=== PATIENT | female | born 1975 | race African-American/Black ===

== ENCOUNTER 2018-02-21 15:51 | Emergency (ER) | payer OTHER ==
[~2018-02-21] VITALS: Ht 170.2 cm; Wt 99.8 kg
[2018-02-21] MEDS ORDERED: GLIPIZIDE10 MG PO (16:10)
[2018-02-21] MEDS ORDERED: PROPRANOLOL HCL80 M2 PO (16:10)
[2018-02-21] MEDS ORDERED: LIPITOR80 MG ORAL (16:10)
[2018-02-21 16:16] VITALS: BP 129/81
[2018-02-21] MEDS ORDERED: Isovue-370 150ml vial INJ PRN (17:00)
[2018-02-21 17:17] LABS: BASOPHILS % (AUTO) 0.9 % (0.0-2.0); EOSINOPHILS % (AUTO) 1.5 % (0.0-3.0); HEMATOCRIT 41.7 % (37.0-47.0); HEMOGLOBIN 14.3 G/DL (12.0-16.0); LYMPHOCYTES % (AUTO) 36.1 % (20.0-45.0); MEAN CORPUSCULAR VOLUME 90 FL (80-99); MONOCYTES % (AUTO) 9.8 % (1.0-10.0); NEUTROPHILS % (AUTO) 51.8 % (45.0-75.0); PLATELET COUNT 297 K/UL (150-450); RED BLOOD COUNT 4.63 M/UL (4.20-5.40); WHITE BLOOD COUNT 6.6 K/UL (4.8-10.8)
[2018-02-21 17:24] LABS: ANION GAP 4 mmol/L (5-15); BLOOD UREA NITROGEN 19 mg/dL (7-18); CALCIUM 9.2 MG/DL (8.5-10.1); CARBON DIOXIDE 30 MMOL/L (21-32); CHLORIDE 105 MMOL/L (98-107); CREATININE 1.2 MG/DL (0.55-1.30); POTASSIUM 3.5 MMOL/L (3.5-5.1); SODIUM 139 MMOL/L (136-145)
[2018-02-21 17:50] LABS: ALANINE AMINOTRANSFERASE 23 U/L (12-78); ALBUMIN 3.7 G/DL (3.4-5.0); ALBUMIN/GLOBULIN RATIO 0.9 (1.0-2.7); ALKALINE PHOSPHATASE 70 U/L (46-116); ASPARTATE AMINO TRANSFERASE 18 U/L (15-37); BILIRUBIN,TOTAL 0.4 MG/DL (0.2-1.0); CKMB 0.8 NG/ML (0.0-3.6); CREATINE KINASE 136 U/L (26-308)
[2018-02-21 18:01] VITALS: BP 130/82
[2018-02-21] MEDS ORDERED: IBUPROFEN600 MG ORAL (18:30)
[2018-02-21 18:45] VITALS: BP 130/82
--- NOTE | 2018-02-21 19:42 | Emergency Room Report ---
History of Present Illness General Chief Complaint: Chest Pain Source: Patient Present Illness HPI Patient presents with complaints of chest pain midsternal patient reports that 2 days ago she was walking when she felt the pain Describes as a shooting type pain There was a pleuritic component Denies any vomiting or diarrhea Denies any abdominal pain denies any dysuria frequency Denies any smoking She feels of the pain has significantly improved Allergies: Coded Allergies: No Known Allergies (Unverified , 02/21/18) Patient History Past Medical History: see triage record Pertinent Family History: none Reviewed Nursing Documentation: PMH: Agreed; PSxH: Agreed Nursing Documentation-PM Past Medical History: No History, Except For Hx Hypertension: Yes Hx Diabetes: Yes Review of Systems All Other Systems: negative except mentioned in HPI Physical Exam Vital Signs Date Time Temp Pulse Resp B/P (MAP) Pulse Ox O2 Delivery O2 Flow Rate FiO2 02/21/18 16:06 80 24 130/82 96 Room Air 02/21/18 16:16 98.5 98.5 02/21/18 18:01 2.0 Sp02 EP Interpretation: reviewed, normal General Appearance: well appearing, no apparent distress Head: normocephalic, atraumatic Eyes: bilateral eye PERRL, bilateral eye EOMI ENT: hearing grossly normal, normal pharynx, TMs + canals normal, uvula midline Neck: full range of motion, supple, no meningismus, no bony tend Respiratory: lungs clear, normal breath sounds, no rhonchi, no respiratory distress, no retraction, no accessory muscle use Cardiovascular #1: normal peripheral pulses, regular rate, rhythm, no edema, no gallop, no JVD, no murmur Gastrointestinal: normal bowel sounds, non tender, soft, no mass, no organomegaly, non-distended, no guarding, no hernia, no pulsatile mass, no rebound Genitourinary: no CVA tenderness Musculoskeletal: normal inspection Neurologic: oriented x3, responsive, manager furniture III-XII nml as tested, motor strength/ tone normal, sensory intact Psychiatric: mood/affect normal Skin: normal color, no rash, warm/dry, palpation normal Lymphatic: normal inspection, no adenopathy Medical Decision Making Diagnostic Impression: Primary Impression: Chest pain ER Course Patient is a fairly complex patient with multiple differential to consideration including but not limited to cardiac cardiopulmonary and vascular emergencies Patient's EKG and blood work are appropriate Given the patient's presentation and complaint CT imaging was also obtained Negative for any obvious central pulmonary embolism Patient feels at baseline levels at this time And is stable for close outpatient follow-up Labs Test 02/21/18 16:40 White Blood Count 6.6 K/UL (4.8-10.8) Red Blood Count 4.63 M/UL (4.20-5.40) Hemoglobin 14.3 G/DL (12.0-16.0) Hematocrit 41.7 % (37.0-47.0) Mean Corpuscular Volume 90 FL (80-99) Mean Corpuscular Hemoglobin 30.9 PG (27.0-31.0) Mean Corpuscular Hemoglobin Concent 34.3 G/DL (32.0-36.0) Red Cell Distribution Width 12.0 % (11.6-14.8) Platelet Count 297 K/UL (150-450) Mean Platelet Volume 6.6 FL (6.5-10.1) Neutrophils (%) (Auto) 51.8 % (45.0-75.0) Lymphocytes (%) (Auto) 36.1 % (20.0-45.0) Monocytes (%) (Auto) 9.8 % (1.0-10.0) Eosinophils (%) (Auto) 1.5 % (0.0-3.0) Basophils (%) (Auto) 0.9 % (0.0-2.0) Urine HCG, Qualitative Negative (NEGATIVE) Sodium Level 139 MMOL/L (136-145) Potassium Level 3.5 MMOL/L (3.5-5.1) Chloride Level 105 MMOL/L (98-107) Carbon Dioxide Level 30 MMOL/L (21-32) Anion Gap 4 mmol/L (5-15) Blood Urea Nitrogen 19 mg/dL (7-18) Creatinine 1.2 MG/DL (0.55-1.30) Estimat Glomerular Filtration Rate 59.8 mL/min (>60) Glucose Level 114 MG/DL (74-106) Calcium Level 9.2 MG/DL (8.5-10.1) Total Bilirubin 0.4 MG/DL (0.2-1.0) Aspartate Amino Transf (AST/SGOT) 18 U/L (15-37) Alanine Aminotransferase (ALT/SGPT) 23 U/L (12-78) Alkaline Phosphatase 70 U/L (46-116) Total Creatine Kinase 136 U/L (26-308) Creatine Kinase MB 0.8 NG/ML (0.0-3.6) Creatine Kinase MB Relative Index 0.5 Troponin I 0.000 ng/mL (0.000-0.056) Pro-B-Type Natriuretic Peptide 16 pg/mL (0-125) Total Protein 8.0 G/DL (6.4-8.2) Albumin 3.7 G/DL (3.4-5.0) Globulin 4.3 g/dL Albumin/Globulin Ratio 0.9 (1.0-2.7) Lipase 129 U/L (73-393) Urine Opiates Screen Negative (NEGATIVE) Urine Barbiturates Screen Negative (NEGATIVE) Phencyclidine (PCP) Screen Negative (NEGATIVE) Urine Amphetamines Screen Negative (NEGATIVE) Urine Benzodiazepines Screen Negative (NEGATIVE) Urine Cocaine Screen Negative (NEGATIVE) Urine Marijuana (THC) Screen Negative (NEGATIVE) EKG Diagnostic Results Rate: normal Rhythm: NSR ST Segments: no acute changes Rhythm Strip Diag. Results EP Interpretation: yes Rate: 77 Rhythm: NSR, no PVC's, no ectopy Chest X-Ray Diagnostic Results Chest X-Ray Diagnostic Results : Chest X-Ray Ordered: Yes # of Views/Limited/Complete: 1 View Indication: Chest Pain EP Interpretation: Yes Interpretation: no consolidation, no effusion, no pneumothorax Impression: No acute disease Electronically Signed by: Adama Duran DO CT/MRI/US Diagnostic Results CT/MRI/US Diagnostic Results : Impression CT chest no acute disease Last Vital Signs Date Time Temp Pulse Resp B/P (MAP) Pulse Ox O2 Delivery O2 Flow Rate FiO2 02/21/18 18:45 98.5 78 18 130/82 98 Nasal Cannula 98.5 02/21/18 18:01 2.0 Status: improved Disposition: HOME, SELF-CARE Condition: Improved Scripts Ibuprofen* (MOTRIN*) 600 Mg Tablet 600 MG ORAL Q8H PRN for For Pain, #20 TAB 0 Refills Prov: Adama Duran DO 02/21/18 Referrals: HILL SAMS,REFERRING (PCP) Patient Instructions: Nonspecific Chest Pain Additional Instructions: Patient is provided with the discharge instructions notified to follow up with primary doctor in the next 2-3 days otherwise return to the er with any worsening symptoms. Please note that this report is being documented using DRAGON technology. This can lead to erroneous entry secondary to incorrect interpretation by the dictating instrument. Adama Duran DO Feb 21, 2018 19:42
--- NOTE | 2018-02-22 08:28 | Diagnostic Imaging Report ---
ndication: Left-sided chest pain for 2 days Technique: IV administration nonionic contrast. Spiral acquisitions obtained from the lung bases to the lung apices. Multiplanar and 3-D reconstructions were generated. Total dose length product 1335.5 mGycm. CTDIvol(s) 39.34 mGy. Dose reduction achieved using automated exposure control Comparison: none Findings: Exam is limited by motion artifact. This particularly limits evaluation of the lung bases. No definite filling defects or other findings to suggest acute pulmonary embolus demonstrated. 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 No evidence of thoracic aortic aneurysm or dissection. Normal caliber pulmonary arteries. No evidence of right ventricular dilatation. The lungs demonstrate apparent diffuse groundglass opacity, more likely an artifact of motion than real. No definite infiltrates, effusions, masses, or nodules. The heart is upper limits of normal in size. No epicardial effusion. Unremarkable esophagus. No mediastinal or hilar mass or adenopathy demonstrated. Included portions of the thyroid are unremarkable. No axillary or chest wall mass or adenopathy. The bones are unremarkable. The included upper abdominal anatomy is unremarkable. Impression: Limited exam; respiratory motion artifact limits exclusion of distal pulmonary emboli. No gross large vessel pulmonary MRI demonstrated. No definite acute process; apparent pulmonary parenchymal groundglass opacity is probably artifactual due to respiratory motion This agrees with the preliminary interpretation provided overnight by [facility] teleradiology service. The CT scanner at [facility] is accredited by the [employer] and the scans are performed using protocols designed to limit radiation exposure to as low as reasonably achievable to attain images of sufficient resolution adequate for diagnostic evaluation.
--- NOTE | 2018-02-22 11:25 | Diagnostic Imaging Report ---
Indication: Chest pain Technique: One view of the chest Comparison: none Findings: Lungs and pleural spaces are clear. Heart size is normal Impression: No acute process
== END 2018-02-21 18:53 | disposition home or self-care (01) ==
LOC: EMR 16:32
DX: R07.9 Chest pain, unspecified (principal); I10 Essential (primary) hypertension; E11.9 Type 2 diabetes mellitus without complications
CPT/HCPCS: 36415; 71045; 71275; 80053; 80307; 81025; 82550; 82553; 83690; 83880; 84484; 85025; 99284; Q9967

== ENCOUNTER 2019-04-03 22:52 | Emergency (ER) | payer OTHER ==
[~2019-04-03] VITALS: Ht 170.2 cm; Wt 90.7 kg
[~2019-04-03 22:52] MED LIST: ADVOCATE BLOOD1 EACH MC; GLIPIZIDE10 MG PO; GLIPIZIDE5 MG ORAL; HYDROCHLOROTH12.5 M2 ORAL; IBUPROFEN600 MG ORAL; LIPITOR80 MG ORAL; NORVASC5 MG ORAL; PROPRANOLOL HCL10 MG ORAL; PROPRANOLOL HCL80 M2 PO
--- NOTE | 2019-04-03 23:12 | NUR ---
ED Nurse Note: Pt ambulated to ED from home c/o intermittent 9/10 crushing pressure in her chest since 1400, denies pain radiates, denies sob. A&Ox4. Denies N/V
[2019-04-03 23:17] VITALS: BP 151/99
--- NOTE | 2019-04-03 23:19 | Emergency Room Report ---
History of Present Illness General Chief Complaint: Chest Pain Source: Patient Present Illness HPI 44, presents with dull chest pain that was constant since 4 PM, 4-year-old female history of hypertension, hyperlipidemia, diabetes, obesity not aggravated with exertion, no alleviating factors, no nausea no vomiting, no shortness of breath, she feels a dull ache mild in intensity, no radiation of her pain, patient presents for evaluation Allergies: Coded Allergies: No Known Allergies (Unverified , 02/21/18) Patient History Past Medical History: see triage record Last Menstrual Period: hysterectomy Reviewed Nursing Documentation: PMH: Agreed; PSxH: Agreed Nursing Documentation-PMH Past Medical History: No History, Except For Hx Hypertension: Yes Hx Diabetes: Yes Review of Systems All Other Systems: negative except mentioned in HPI Physical Exam Vital Signs Date Time Temp Pulse Resp B/P (MAP) Pulse Ox O2 Delivery O2 Flow Rate FiO2 04/03/19 22:54 98.1 76 18 151/99 (116) 97 Room Air Sp02 EP Interpretation: reviewed, normal General Appearance: well appearing, no apparent distress, alert Head: normocephalic, atraumatic Eyes: bilateral eye PERRL, bilateral eye EOMI ENT: uvula midline, moist mucus membranes Neck: supple, thyroid normal, supple/symm/no masses Respiratory: lungs clear, no respiratory distress, no retraction, no accessory muscle use Cardiovascular #1: normal peripheral pulses, regular rate, rhythm, no edema, no gallop, no murmur Gastrointestinal: non tender, soft, no guarding, no rebound Musculoskeletal: normal inspection Neurologic: alert, oriented x3 Psychiatric: mood/affect normal Skin: no rash, warm/dry Medical Decision Making Diagnostic Impression: Primary Impression: Chest pain ER Course 44-year-old female presents with atypical chest pain since 4 PM. Patient with negative stress test 1 year ago, patient with a heart score of 3 based on story, risk factors, and age, first troponin was negative, EKG is negative for focal abnormalities, joint decision making was made with patient, patient feels comfortable going home she will return if she worsens. Pain improved with GI cocktail administration, possible component of GERD Provide patient with a prescription for baby aspirin to be taken every day Laboratory Tests Test 04/03/19 23:20 White Blood Count 7.0 K/UL (4.8-10.8) Red Blood Count 4.61 M/UL (4.20-5.40) Hemoglobin 14.0 G/DL (12.0-16.0) Hematocrit 40.2 % (37.0-47.0) Mean Corpuscular Volume 87 FL (80-99) Mean Corpuscular Hemoglobin 30.3 PG (27.0-31.0) Mean Corpuscular Hemoglobin Concent 34.7 G/DL (32.0-36.0) Red Cell Distribution Width 11.2 % (11.6-14.8) L Platelet Count 288 K/UL (150-450) Mean Platelet Volume 6.3 FL (6.5-10.1) L Neutrophils (%) (Auto) 51.7 % (45.0-75.0) Lymphocytes (%) (Auto) 39.8 % (20.0-45.0) Monocytes (%) (Auto) 4.7 % (1.0-10.0) Eosinophils (%) (Auto) 2.4 % (0.0-3.0) Basophils (%) (Auto) 1.4 % (0.0-2.0) Prothrombin Time 10.2 SEC (9.30-11.50) Prothrombin Time INR 1.0 (0.9-1.1) PTT 28 SEC (23-33) Urine Color Pale yellow Urine Appearance Slightly cloudy Urine pH 6.5 (4.5-8.0) Urine Specific [place] 1.005 (1.005-1.035) Urine Protein Negative (NEGATIVE) Urine Glucose (UA) 2+ (NEGATIVE) H Urine Ketones Negative (NEGATIVE) Urine Blood Negative (NEGATIVE) Urine Nitrite Negative (NEGATIVE) Urine Bilirubin Negative (NEGATIVE) Urine Urobilinogen Normal MG/DL (0.0-1.0) Urine Leukocyte Esterase 1+ (NEGATIVE) H Urine RBC 0-2 /HPF (0 - 2) Urine WBC 0-2 /HPF (0 - 2) Urine Squamous Epithelial Cells Many /LPF (NONE/OCC) H Urine Bacteria Moderate /HPF (NONE) H Urine HCG, Qualitative Negative (NEGATIVE) Sodium Level 139 MMOL/L (136-145) Potassium Level 3.5 MMOL/L (3.5-5.1) Chloride Level 101 MMOL/L (98-107) Carbon Dioxide Level 33 MMOL/L (21-32) H Anion Gap 5 mmol/L (5-15) Blood Urea Nitrogen 14 mg/dL (7-18) Creatinine 1.0 MG/DL (0.55-1.30) Estimate Glomerular Filtration Rate > 60 mL/min (>60) Glucose Level 202 MG/DL (74-106) H Calcium Level 9.4 MG/DL (8.5-10.1) Total Bilirubin 0.4 MG/DL (0.2-1.0) Aspartate Amino Transferase (AST) 17 U/L (15-37) Alanine Aminotransferase (ALT) 16 U/L (12-78) Alkaline Phosphatase 71 U/L (46-116) Total Creatine Kinase 111 U/L (26-308) Creatine Kinase MB 0.7 NG/ML (0.0-3.6) Creatine Kinase MB Relative Index 0.6 Troponin I 0.000 ng/mL (0.000-0.056) Pro-B-Type Natriuretic Peptide 63 pg/mL (0-125) Total Protein 7.9 G/DL (6.4-8.2) Albumin 3.9 G/DL (3.4-5.0) Globulin 4.0 g/dL Albumin/Globulin Ratio 1.0 (1.0-2.7) Lipase 150 U/L (73-393) EKG Diagnostic Results EKG Time: 23:02 EP Interpretation: NSR, rate 76, QTc 445, no acute ST elevations, normal axis Rate: normal Rhythm: NSR ST Segments: no acute changes ASA given to the pt in ED: No Rhythm Strip Diag. Results Rhythm Strip Time: 23:18 EP Interpretation: yes Rate: 73 Rhythm: NSR, no PVC's, no ectopy Chest X-Ray Diagnostic Results Chest X-Ray Diagnostic Results : Chest X-Ray Ordered: Yes # of Views/Limited/Complete: 1 View Indication: Chest Pain EP Interpretation: Yes Interpretation: no acute cardiopulmonary disease Impression: No acute disease Electronically Signed by: Francisco Jon MD Last Vital Signs Date Time Temp Pulse Resp B/P (MAP) Pulse Ox O2 Delivery O2 Flow Rate FiO2 04/03/19 22:54 98.1 76 18 151/99 (116) 97 Room Air Disposition: HOME, SELF-CARE Condition: Stable Scripts Aspirin* (ASPIR 81*) 81 Mg Tablet. 81 MG ORAL DAILY, #30 TAB Prov: Francisco Jno MD 04/04/19 Referrals: H[facility] SAMS,REFERRING (PCP) [facility] Patient Instructions: Nonspecific Chest Pain Additional Instructions: The patient was provided with discharge instructions, notified to follow-up with a primary care doctor and or specialist in the next 24-48 hours, and to return to the ED if they have worsening of their symptoms. Please note that this report is being documented using [employer] technology. This can lead to erroneous entry secondary to incorrect interpretation by the dictating instrument. Please obtain a stress test and follow-up with a order booker in 24 to 48 hours , please return to the emergency room if you have worsening of your pain. Francisco Jon MD Apr 03, 2019 23:19
[2019-04-03 23:44] LABS: BASOPHILS % (AUTO) 1.4 % (0.0-2.0); EOSINOPHILS % (AUTO) 2.4 % (0.0-3.0); HEMATOCRIT 40.2 % (37.0-47.0); LYMPHOCYTES % (AUTO) 39.8 % (20.0-45.0); MEAN CORPUSCULAR VOLUME 87 FL (80-99); MONOCYTES % (AUTO) 4.7 % (1.0-10.0); NEUTROPHILS % (AUTO) 51.7 % (45.0-75.0); PLATELET COUNT 288 K/UL (150-450); RED BLOOD COUNT 4.61 M/UL (4.20-5.40); RED CELL DISTRIBUTION WIDTH 11.2 % (11.6-14.8)
[2019-04-03 23:45] LABS: APPEARANCE,URINE SLIGHTLY CLOUDY; BILIRUBIN, URINE NEGATIVE (NEGATIVE); COLOR,URINE PALE YELLOW; GLUCOSE, URINE (UA) 2+ (NEGATIVE); KETONES,URINE NEGATIVE (NEGATIVE); LEUKOCYTE ESTERASE ,URINE 1+ (NEGATIVE); NITRITE,URINE NEGATIVE (NEGATIVE); PH,URINE 6.5 (4.5-8.0); PROTEIN,URINE NEGATIVE (NEGATIVE); UROBILINOGEN,URINE NORMAL MG/DL (0.0-1.0)
[2019-04-04 00:01] LABS: ANION GAP 5 mmol/L (5-15); BLOOD UREA NITROGEN 14 mg/dL (7-18); CALCIUM 9.4 MG/DL (8.5-10.1); CARBON DIOXIDE 33 MMOL/L (21-32); CHLORIDE 101 MMOL/L (98-107); POTASSIUM 3.5 MMOL/L (3.5-5.1); SODIUM 139 MMOL/L (136-145)
[2019-04-04 00:09] LABS: ALANINE AMINOTRANSFERASE 16 U/L (12-78); ALBUMIN 3.9 G/DL (3.4-5.0); ALKALINE PHOSPHATASE 71 U/L (46-116); ASPARTATE AMINO TRANSFERASE 17 U/L (15-37); BILIRUBIN,TOTAL 0.4 MG/DL (0.2-1.0); CKMB 0.7 NG/ML (0.0-3.6); CREATINE KINASE 111 U/L (26-308)
[2019-04-04] MEDS ORDERED: Lidocaine 2% Visc 15ml soln ORAL ONE (00:30)
[2019-04-04] MEDS ORDERED: Mylanta II UD 30ml ORAL ONE (00:30)
[2019-04-04] MEDS ORDERED: ASPIR 8181 MG ORAL (00:44)
[2019-04-04 00:55] VITALS: BP 151/99
--- NOTE | 2019-04-04 00:55 | NUR ---
ER DISCHARGE NOTE: Patient is cleared to be discharged per ERMD, pt is aox4, on room air, with stable vital signs. pt was given dc and prescription instructions, pt was able to verbalize understanding, pt id band and iv site removed without complications. pt is able to ambulate with steady gait. pt took all belongings.
== END 2019-04-04 00:55 | disposition home or self-care (01) ==
LOC: EMR 23:00
DX: R07.89 Other chest pain (principal); I10 Essential (primary) hypertension; E11.9 Type 2 diabetes mellitus without complications; E78.5 Hyperlipidemia, unspecified; E66.9 Obesity, unspecified; Z90.710 Acquired absence of both cervix and uterus
CPT/HCPCS: 36415; 71045; 80053; 81003; 81025; 82550; 82553; 83690; 83880; 84484; 85025; 85610; 85730; 87086; 93005; 96374; 99284; J2405

== ENCOUNTER 2019-08-19 04:11 | Inpatient (IN) | payer OTHER ==
[~2019-08-19] VITALS: Ht 170.2 cm; Wt 109.0 kg
[2019-08-19] VITALS (7 sets, daily range): BP systolic 104–132; BP diastolic 70–94
[~2019-08-19 04:11] MED LIST changes: +ASPIR 8181 MG ORAL
--- NOTE | 2019-08-19 04:20 | NUR ---
ED Nurse Note: Pt is aaox2, vss, no acute distress. Pt speach is not age appropriate. Pt hands and feet are contracted. Pt on shelter monitor and side rails are padded. Pt brought in by ambulance 69 c/o post ictal sz. Per EMS, pt had a sz, unwitnessed and unk duration. Pt is not taking meds for sz. Per EMS, pt is orientated to name which is not her baseline; pt is a&ox4. BS 138.
[2019-08-19] MEDS: LORazepam Inj 2mg/ml 1ml IV ONE ×5 (04:24→05:00)
--- NOTE | 2019-08-19 04:24 | Emergency Room Report ---
History of Present Illness General Chief Complaint: Seizure Source: Patient (Ritesh Gonzalez MD) Present Illness HPI Disclaimer: Please note that this report is being documented using DRAGON technology. This can lead to erroneous entry secondary to incorrect interpretation by the dictating instrument. HPI: 44-year-old female with history of hypertension, hyperlipidemia, diabetes, obesity and reported seizure disorder presents for evaluation after a seizure. The patient was spending the night at a friend's house and was found seizing with generalized convulsions while lying on the couch. Unknown how long the seizure lasted. It aborted spontaneously. She was postictal on EMS arrival. According to EMS and patient she has a history of seizure but is not on antiepileptic medications. She is scheduled to follow-up with a neurologist soon. She has had multiple seizures in the past according to patient. She is oriented to self only. Somnolent but arousable. She is speaking with a high- pitched voice which apparently is typical of her postictal state. Somewhat combative with staff. There is no reported head injury. She was found laying on the couch. PMH: Hypertension, hyperlipidemia, obesity, diabetes, seizure disorder, cancer PSH: Hysterectomy Allergies: None listed Social Hx: None reported (Ritesh Gonzalez MD) Allergies: Coded Allergies: No Known Allergies (Unverified , 02/21/18) Nursing Documentation-PMH Hx Hypertension: Yes Hx Diabetes: Yes Hx Seizures: Yes (Ritesh Gonzalez MD) Review of Systems All Other Systems: negative except mentioned in HPI (Ritesh Gonzalez MD) Physical Exam Vital Signs Date Time Temp Pulse Resp B/P (MAP) Pulse Ox O2 Delivery O2 Flow Rate FiO2 08/19/19 04:13 97.9 100 20 142/101 (115) 100 Room Air General: Awake and alert, no acute distress HEENT: NC/AT. EOMI. pupils are 4 mm bilaterally. Moist mucous membranes. High- pitched voice, no stridor. Cardiovascular: Tachycardic. S1 and S2 normal. No murmur appreciated Resp: Normal work of breathing. No cough, wheezing or crackles appreciated Abdomen: Abdomen is soft, nondistended, obese. Nontender Skin: Intact. No abrasions, laceration or rash over the exposed skin MSK: Normal tone and bulk. Moving all extremities. No obvious deformity. Neuro: Awake and alert. Oriented to self only. Moving all extremities. Hands clenched in fists but can open them on instruction. Able to follow commands. (Ritesh Gonzalez MD) Medical Decision Making Diagnostic Impression: Primary Impression: Seizure Additional Impression: UTI (urinary tract infection) Qualified Codes: N39.0 - Urinary tract infection, site not specified ER Course 44-year-old female with history of seizure disorder but not currently taking antiepileptic medication presents for evaluation after a generalized tonic- clonic seizure while at a friend's house. She arrives awake and oriented to self though appears to be improving during her ER stay. No recurrent seizure- like activity. No head injury. We will start broad metabolic and infectious as well as toxicologic work-up. Patient be loaded with Keppra. Laboratory Tests Test 08/19/19 04:19 08/19/19 05:01 White Blood Count 6.7 K/UL (4.8-10.8) Red Blood Count 5.08 M/UL (4.20-5.40) Hemoglobin 15.4 G/DL (12.0-16.0) Hematocrit 44.9 % (37.0-47.0) Mean Corpuscular Volume 88 FL (80-99) Mean Corpuscular Hemoglobin 30.4 PG (27.0-31.0) Mean Corpuscular Hemoglobin Concent 34.4 G/DL (32.0-36.0) Red Cell Distribution Width 11.4 % (11.6-14.8) L Platelet Count 310 K/UL (150-450) Mean Platelet Volume 6.5 FL (6.5-10.1) Neutrophils (%) (Auto) 49.1 % (45.0-75.0) Lymphocytes (%) (Auto) 40.2 % (20.0-45.0) Monocytes (%) (Auto) 7.2 % (1.0-10.0) Eosinophils (%) (Auto) 2.5 % (0.0-3.0) Basophils (%) (Auto) 1.0 % (0.0-2.0) Sodium Level 140 MMOL/L (136-145) Potassium Level 3.7 MMOL/L (3.5-5.1) Chloride Level 102 MMOL/L (98-107) Carbon Dioxide Level 30 MMOL/L (21-32) Anion Gap 8 mmol/L (5-15) Blood Urea Nitrogen 20 mg/dL (7-18) H Creatinine 0.9 MG/DL (0.55-1.30) Estimate Glomerular Filtration Rate > 60 mL/min (>60) Glucose Level 131 MG/DL (74-106) H Calcium Level 9.5 MG/DL (8.5-10.1) Total Bilirubin 0.4 MG/DL (0.2-1.0) Aspartate Amino Transferase (AST) 19 U/L (15-37) Alanine Aminotransferase (ALT) 27 U/L (12-78) Alkaline Phosphatase 79 U/L (46-116) Total Creatine Kinase 72 U/L (26-308) Total Protein 8.2 G/DL (6.4-8.2) Albumin 3.8 G/DL (3.4-5.0) Globulin 4.4 g/dL Albumin/Globulin Ratio 0.9 (1.0-2.7) L Salicylates Level 2.2 ug/mL (2.8-20) L Acetaminophen Level < 2 MCG/ML (10-30) L Serum Alcohol < 3 mg/dL Urine Color Pale yellow Urine Appearance Clear Urine pH 6 (4.5-8.0) Urine Specific [place] 1.020 (1.005-1.035) Urine Protein Negative (NEGATIVE) Urine Glucose (UA) 3+ (NEGATIVE) H Urine Ketones Negative (NEGATIVE) Urine Blood Negative (NEGATIVE) Urine Nitrite Negative (NEGATIVE) Urine Bilirubin Negative (NEGATIVE) Urine Urobilinogen Normal MG/DL (0.0-1.0) Urine Leukocyte Esterase 2+ (NEGATIVE) H Urine RBC 0-2 /HPF (0 - 2) Urine WBC 5-10 /HPF (0 - 2) H Urine Squamous Epithelial Cells Few /LPF (NONE/OCC) Urine Bacteria Few /HPF (NONE) Urine Mucus Few /LPF (NONE/OCC) H Urine HCG, Qualitative Negative (NEGATIVE) Urine Opiates Screen Negative (NEGATIVE) Urine Barbiturates Screen Negative (NEGATIVE) Phencyclidine (PCP) Screen Negative (NEGATIVE) Urine Amphetamines Screen Negative (NEGATIVE) Urine Benzodiazepines Screen Negative (NEGATIVE) Urine Cocaine Screen Negative (NEGATIVE) Urine Marijuana (THC) Screen Negative (NEGATIVE) (Ritesh Gonzalez MD) ER Course 44-year-old female admitted to Dr. Copeland (Francisco Jon MD) EKG Diagnostic Results EKG Time: 04:24 Rate: normal Rhythm: NSR ST Segments: no acute changes Other Impression Sinus rhythm, normal axis, normal intervals, no ST segment changes. (Ritesh Gonzalez MD) Rhythm Strip Diag. Results Rhythm Strip Time: 04:24 EP Interpretation: yes Rate: 90 Rhythm: NSR, no PVC's, no ectopy (Ritesh Gonzalez MD) Reevaluation Time: 05:07 Last Vital Signs Date Time Temp Pulse Resp B/P (MAP) Pulse Ox O2 Delivery O2 Flow Rate FiO2 08/19/19 04:13 97.9 100 20 142/101 (115) 100 Room Air Reevaluation Impression Family now present. They state that this is a typical seizure-like activity for the patient. She has an appoint with a neurologist in 5 days. These initial facial twitches which have progressed to full body seizures started in February of this year when they state she had a stroke. Per family, she has been seen at multiple hospitals for evaluation thus far but is not yet been started on antiepileptic medication. According to family, multiple CT scans and an MRI have been performed but according to them showed no significant findings 0535: Labs have returned largely within normal limits. No white count, normal renal function, no electrolyte abnormalities, tox panel negative. Urinalysis shows 2 + leukocyte esterase and 5-10 white cells but few bacteria. Patient cannot recall any specific UTI symptoms. Given her recent seizure activity though would treat as a potential urinary tract infection to which the patient agrees. Will give a gram of ceftriaxone in the emergency department and discharged on Keflex. I have also discussed with patient and family whether or not to start antiepileptic at this point. I would start Keppra 500 mg twice daily to which family agrees. Patient continues to improve but is groggy after receiving the Ativan she was given for the spasticity is in her hands. When she is more awake she will be discharged home to follow-up with her neurologist at her already set appointment for next week. 0600: Patient had 2 more brief episodes of generalized tonic-clonic seizure-like activity. Each lasted less than 10 seconds and the patient became again postictal but responsive. She was given another dose of Ativan. At this point I believe she warrants another admission. Will admit to telemetry for further work-up. (Ritesh Gonzalez MD) Disposition: ADMITTED INPATIENT Condition: Stable Ritesh Gonzalez MD Aug 19, 2019 04:24 Francisco Jon MD Aug 19, 2019 09:47
[2019-08-19] MEDS ORDERED: levETIRAcetam 1,000mg/NS100ml 100 ML IVPB ONE (04:30)
--- NOTE | 2019-08-19 04:30 | NUR ---
ED Nurse Note: Pt refused ativan. She stated it makes her heart act up.
[2019-08-19 04:32] LABS: EOSINOPHILS % (AUTO) 2.5 % (0.0-3.0); HEMATOCRIT 44.9 % (37.0-47.0); HEMOGLOBIN 15.4 G/DL (12.0-16.0); LYMPHOCYTES % (AUTO) 40.2 % (20.0-45.0); MEAN CORPUSCULAR VOLUME 88 FL (80-99); MONOCYTES % (AUTO) 7.2 % (1.0-10.0); NEUTROPHILS % (AUTO) 49.1 % (45.0-75.0); PLATELET COUNT 310 K/UL (150-450); RED BLOOD COUNT 5.08 M/UL (4.20-5.40); RED CELL DISTRIBUTION WIDTH 11.4 % (11.6-14.8); WHITE BLOOD COUNT 6.7 K/UL (4.8-10.8)
[2019-08-19 04:41] LABS: ANION GAP 8 mmol/L (5-15); BLOOD UREA NITROGEN 20 mg/dL (7-18); CALCIUM 9.5 MG/DL (8.5-10.1); CARBON DIOXIDE 30 MMOL/L (21-32); CHLORIDE 102 MMOL/L (98-107); CREATININE 0.9 MG/DL (0.55-1.30); POTASSIUM 3.7 MMOL/L (3.5-5.1); SODIUM 140 MMOL/L (136-145)
[2019-08-19 04:45] LABS: ALANINE AMINOTRANSFERASE 27 U/L (12-78); ALBUMIN 3.8 G/DL (3.4-5.0); ALBUMIN/GLOBULIN RATIO 0.9 (1.0-2.7); ALKALINE PHOSPHATASE 79 U/L (46-116); ASPARTATE AMINO TRANSFERASE 19 U/L (15-37); BILIRUBIN,TOTAL 0.4 MG/DL (0.2-1.0); CREATINE KINASE 72 U/L (26-308)
[2019-08-19] MEDS ORDERED: LORazepam Inj 2mg/ml 1ml ONE (04:49)
--- NOTE | 2019-08-19 04:50 | NUR ---
ED Nurse Note: Pt hands and feet are no longer conteracted.
[2019-08-19 05:10] LABS: APPEARANCE,URINE CLEAR; BILIRUBIN, URINE NEGATIVE (NEGATIVE); COLOR,URINE PALE YELLOW; GLUCOSE, URINE (UA) 3+ (NEGATIVE); KETONES,URINE NEGATIVE (NEGATIVE); LEUKOCYTE ESTERASE ,URINE 2+ (NEGATIVE); NITRITE,URINE NEGATIVE (NEGATIVE); PH,URINE 6 (4.5-8.0); PROTEIN,URINE NEGATIVE (NEGATIVE); UROBILINOGEN,URINE NORMAL MG/DL (0.0-1.0)
[2019-08-19] MEDS ORDERED: CEPHALEXIN500 MG ORAL ×2 (05:39)
[2019-08-19] MEDS ORDERED: cefTRIAXone 1 GM in NS 55 ML IVPB ONE (05:45)
[2019-08-19] MEDS ORDERED: LORazepam Inj 2mg/ml 1ml IV ONE (06:00)
--- NOTE | 2019-08-19 06:00 | NUR ---
ED Nurse Note: Pt had a seizure with family members at bedside.
--- NOTE | 2019-08-19 06:27 | NUR ---
ED Nurse Note: Pt family prefer to have the pt transfered to [facility] . The facility is closer to her home.
--- NOTE | 2019-08-19 06:38 | NUR ---
ED Nurse Note: Pt has had 2 seizure while in ED at this time. MD notified.
--- NOTE | 2019-08-19 07:05 | NUR ---
HAND-OFF: Report given to SERENE Mason.
--- NOTE | 2019-08-19 07:25 | NUR ---
ED Nurse Note: Received pt on bed, asleep, on stable condition. VSS, no signs of any respiratory distress. Family member on bedside.
--- NOTE | 2019-08-19 09:15 | NUR ---
ED Nurse Note: Pt is awake, alert, on stable condition. VSS; no signs of any respiratory distress. Bed maintained on low position. Will continue to monitor.
--- NOTE | 2019-08-19 09:24 | NUR ---
ED Nurse Note: Pt had a approx. 30 sec seizure episode. Pt remained on side lying position facing LT side. Observed and maintained airway patency. Will continue to monitor.
--- NOTE | 2019-08-19 10:20 | NUR ---
TRANSFER TO FLOOR: Pt transferred to TELE as ordered, per Dr. Glaser. Report given to Charito CAST. Belongings and medications given to family and receiving nurse. Family and or S/O informed of transfer.
--- NOTE | 2019-08-19 10:20 | NUR ---
NURSE NOTES: REPORT RECEIVED FROM SERENE CHRISTINE. PATIENT TRANSFERRED TO FLOOR. PATIENT ALERT AND ABLE TO MAKE NEEDS KNOWN. PATIENT HAS RIGHT FOREARM IV 20G, CLEAN DRY AND INTACT. PLACED ON UNIVERSITY DEAN. ORIENTED TO ROOM AND CALL LIGHT. BED IN THE LOW AND LOCKED POSITION WITH SIDE RAILS PADDED. WILL CONTINUE TO MONITOR.
--- NOTE | 2019-08-19 10:35 | NUR ---
NURSE NOTES: PATIENT EXPERIENCED SEIZURE LASTING 55 SECONDS.
[2019-08-19] MEDS ORDERED: D5NS 1,000 ML IV SCH (11:15)
[2019-08-19] MEDS ORDERED: LORazepam Inj 2mg/ml 1ml IV PRN (11:30)
[2019-08-19] MEDS ORDERED: Omnipaque-300 100ml vial INJ SCH (14:15)
[2019-08-19] MEDS: D5NS 1,000 ML IV SCH ×2 (14:30→22:39)
--- NOTE | 2019-08-19 17:28 | Diagnostic Imaging Report ---
Indications: Seizures Technique: Spiral acquisitions obtained through the brain. Angled axial and coronal 5 x 5 mm slices were reconstructed. Total dose length product 1394 mGycm. CTDI vol(s) 62 mGy. Dose reduction achieved using automated exposure control Comparison: None. Findings: Old lacunar infarct versus prominent perivascular spaces seen in the right basal ganglia. No acute intracranial hemorrhage or edema, mass effect, nor midline shift. Normal pearce-white differentiation. Normal size ventricles and extra axial CSF spaces. Intact calvarium. The mastoids are clear. Sinuses are clear. The orbits are unremarkable Impression: Negative for acute intracranial bleed or mass effect Old right basal ganglia lacunar infarct versus prominent perivascular space This agrees with the preliminary interpretation provided overnight by [facility] teleradiology service. The CT scanner at [facility] is accredited by the [employer] and the scans are performed using protocols designed to limit radiation exposure to as low as reasonably achievable to attain images of sufficient resolution adequate for diagnostic evaluation.
--- NOTE | 2019-08-19 19:52 | NUR ---
HAND-OFF: Report given to SERENE MCFADDEN.
--- NOTE | 2019-08-19 19:54 | NUR ---
NURSE NOTES: REPORT RECEIVED FROM Asher CAST. PATIENT ALERT AND oriented x3, ABLE TO MAKE NEEDS KNOWN, sounds like a slight speech delay but . PATIENT HAS RIGHT FOREARM IV 20G, CLEAN DRY AND INTACT, fluids infusing. ON SOCK LINER. Spoke with family member, her mother, who wants to speak with the physician. had left for the day. She asked to speak with tomorrow as she will eb unavailable on Tuesday. BED IN THE LOW AND LOCKED POSITION WITH SIDE RAILS PADDED, HOB elevated, aspiration precautions. WILL CONTINUE TO MONITOR.
--- NOTE | 2019-08-19 20:16 | NUR ---
NURSE NOTES: PATIENT's mother said pt EXPERIENCED SEIZURE. I was present in the room, pt had facial grimacing, tightened body lower and upper extremities, teeth clenching. Turned pt on left side and monitored. Pt is now resting. No injuries sustained. Lasted 100 seconds.
[2019-08-19] MEDS ORDERED: ROBAXIN-500MG ORAL (20:48)
[2019-08-19] MEDS: Heparin 5000 units/ml inj SUBQ SCH (21:00)
[2019-08-20] VITALS: BP 128/84
[2019-08-20 05:11] VITALS: BP 110/77
[2019-08-20] MEDS: D5NS 1,000 ML IV SCH ×2 (05:45→15:55)
--- NOTE | 2019-08-20 07:35 | NUR ---
HAND-OFF: Report given to SERENE Park.
--- NOTE | 2019-08-20 07:36 | NUR ---
NURSE NOTES: Received pt in bed, sleeping. No s/s of distress/pain at this moment. Room air. IV on R FA 20g intact and patent, running D5NS @ 125 ml/hr. Side rails padded for seizure precaution. Bed in the lowest and locked. Call light within reach. Will continue to monitor
[2019-08-20 08:00] VITALS: BP 130/80
[2019-08-20 09:08] LABS: ALANINE AMINOTRANSFERASE 24 U/L (12-78); ALBUMIN 3.1 G/DL (3.4-5.0); ALBUMIN/GLOBULIN RATIO 0.8 (1.0-2.7); ALKALINE PHOSPHATASE 66 U/L (46-116); ANION GAP 6 mmol/L (5-15); ASPARTATE AMINO TRANSFERASE 18 U/L (15-37); BILIRUBIN,TOTAL 0.4 MG/DL (0.2-1.0); BLOOD UREA NITROGEN 12 mg/dL (7-18); CALCIUM 8.5 MG/DL (8.5-10.1); CARBON DIOXIDE 27 MMOL/L (21-32); CHLORIDE 106 MMOL/L (98-107); CREATININE 0.8 MG/DL (0.55-1.30); POTASSIUM 3.7 MMOL/L (3.5-5.1); SODIUM 139 MMOL/L (136-145)
[2019-08-20] MEDS: Heparin 5000 units/ml inj SUBQ SCH ×2 (09:19→20:41)
--- NOTE | 2019-08-20 11:57 | NUR ---
NURSE NOTES: Patient stated, "I'm having seizure" and started shaking her hands with clenched fist. Laid pt on left side. Lasted for 2 min. Gave ativan 1 mg.
[2019-08-20 12:00] VITALS: BP 138/85
--- NOTE | 2019-08-20 14:36 | NUR ---
NURSE NOTES: Pt is off the floor for CT head
[2019-08-20 16:00] VITALS: BP 127/89
--- NOTE | 2019-08-20 16:06 | NUR ---
CASE MANAGEMENT:REVIEW 44 YR OLD FEMALE BIBA SI: SEIZURE. UTI 97.8 100 20 142/101 100% ON RA BUN+20 IS: IV ATIVAN X3 IV KEPPRA IV ROCEPHIN : TO TELEMETRY PLAN: SEIZURE PRECAUTIONS NEURO CHECKS Q4
--- NOTE | 2019-08-20 16:15 | Diagnostic Imaging Report ---
Indication: Seizures and headache Technique: Spiral acquisitions obtained through the brain pre- and post-IV contrast administration. Angled axial and coronal 5 x 5 mm slices reconstructed. Total dose length product 3103 mGycm. CTDIvol(s) 62 x 2 mGy. Dose reduction achieved using automated exposure control Comparison: Noncontrast brain CT 08/19/2019 Findings: Precontrast images demonstrate no evidence of acute hemorrhage or edema. No mass effect nor midline shift. Normal pearce-white differentiation. Normal size ventricles and extra-axial CSF spaces. Visualized orbits and sinuses are unremarkable. No significant change Postcontrast images demonstrate no unusual contrast enhancement. Impression: Negative. No evidence for acute intracranial bleed, mass effect, or contrast enhancing lesion The CT scanner at [facility] is accredited by the [employer] and the scans are performed using protocols designed to limit radiation exposure to as low as reasonably achievable to attain images of sufficient resolution adequate for diagnostic evaluation.
[2019-08-20] MEDS ORDERED: Lisinopril 10mg tab ORAL SCH (16:30)
[2019-08-20] MEDS ORDERED: NovoLOG Insulin Flexpen SUBQ SCH (16:50)
[2019-08-20] MEDS: NovoLOG Insulin Flexpen SUBQ SCH ×2 (17:19→20:42)
--- NOTE | 2019-08-20 19:30 | NUR ---
HAND-OFF: Report given to SERENE Lima.
--- NOTE | 2019-08-20 19:35 | NUR ---
NURSE NOTES: Received pt in bed, sitting up, mother at bedside. No s/s of distress/pain at this moment. Room air. IV on R FA 20g intact and patent, running D5NS @ 125 ml/hr. Side rails padded for seizure precautions. Bed in the lowest and locked position, bed alarm on. Call light within reach. Will continue to monitor. Was told from previous shift patient will be transferred to [address] [place] [address], notified family member.
--- NOTE | 2019-08-20 20:00 | Consultation ---
Consult Note Consult Note [facility] NEUROLOGY CONSULTATION August 20, [address] Copeland, I evaluated Ms. Leny Field and my assessment is as follows. HISTORY: Ms. Leny Field is a 44-year-old, left-handed, black lady, who does have a past history of hypertension, diabetes mellitus, hysterectomy for uterine tumor, questionable seizures, and a questionable stroke. She is unable to give me a cogent history and cannot tell me for how long she has had seizures. She was brought into the [facility] emergency room on 08/19/2019 after she apparently had a seizure at a friend's house while she was lying on a couch. In the emergency room at [facility] she continued to have seizures and was given Ativan. She was also started on Keppra. At this point in time she continues to not be very clear as to what exactly happens when she has a seizures. In addition she is speaking in a shrill tone which apparently happens when she has seizures. PAST HISTORY: Hypertension Diabetes mellitus Uterine tumor status post hysterectomy. Seizures Questionable stroke. FAMILY HISTORY: Unobtainable. PERSONAL HISTORY: Home: She lives with a friend. Work: She works as a [employer]. Habits: She denies use of alcohol tobacco or illicit drugs. Medications at home: She is unable to give me the list. PHYSICAL EXAMINATION: General: She is a well-developed, obese, black lady, lying in bed, in no acute distress. VITAL SIGNS: Pulse: 86/min Blood pressure: 127/89 mmHg Respiration: 18/min Temperature: 98 F Head: Normocephalic and atraumatic Neck: No neck rigidity was observed EENT examination: Benign NEUROLOGICAL EXAMINATION: Mental status examination: She was awake and alert. She was oriented to self and hospital only She was able to recall 3/3 words immediately but could only remember 2/3 and 1 minute and 3 minutes. She was unable to remember any [place] presidents. She was unable to do simple mathematics. She was unable to do simple visuospatial problems. Speech: She spoke with an artificially shrill voice. Language: She was able to comprehend and express herself relatively well. Cranial nerve examination: Cranial nerves II through XII are intact. Motor examination: The tone was increased with paratonia in all 4 extremities. Examination of muscle mass revealed no focal wasting. Examination of power was impossible to perform as she would not give me an adequate effort. Sensory examination: She responded to deep pain equally in all 4 extremities. She did not cooperate for the sensory modalities. Coordination: She performed well on iysdyn-ym-hfyw testing she was unable to perform ckdy-qz-syjv testing. Reflexes: 0 at the biceps, triceps, brachioradialis, knees ankles. The plantar responses were flexor. Stance and gait: Were deferred. DIAGNOSTIC IMPRESSION: 1. Ms. Leny Field is a 44-year-old, left-handed, black lady, who does have a past history of hypertension, diabetes mellitus, hysterectomy for uterine tumor, questionable seizures, and a questionable stroke. She was hospitalized after she had a seizure at a friend's house and then apparently had multiple seizures in the emergency room and her hospital room. 2. On neurological examination, at this time, she exhibits significant behavioral problems. Her mental status examination is difficult to assess. Her cranial nerve examination is normal. Her motor examination is difficult to assess because of varying degrees of effort. She does respond appropriately to deep pain but does not cooperate for other sensory modalities. Deep tendon reflexes are globally absent other plantar responses are flexor. Stance and gait cannot be tested. 3. The CT scan of the brain reveals no acute pathology. 4. The EEG performed on 08/19/2019 was normal in the awake drowsy and sleep states. She did have a seizure during the EEG during which EMG artifact was seen but no electrographic ictal phenomena were noted. In addition there was no postictal slowing. 5. The patient's history, neurological examination, imaging studies, and EEG are most consistent with nonepileptic seizures. RECOMMENDATIONS: 1. Agree with management thus far. 2. The patient may benefit from psychiatric intervention for her nonepileptic seizures. 3. Would continue Keppra 500 mg every 12 hours for now until psychiatric help has been obtained. Thank you for entrusting me with the care of Ms. Field. Please do let me know if I can be of any further help. Jose Cruz De La Rosa M.D., M.S.P.H. Jose Cruz De La Rosa MD Aug 20, 2019 20:00
--- NOTE | 2019-08-20 21:22 | NUR ---
Transfer: HAND-OFF: Report given to SERENE Borja Pt in stable condition. belongings list checked at bedside, all belongings sent to 4th floor with patient. Mother at bedside with pt. Transferred to room 414-2. In no acute distress, bed locked in lowest position, side rails x3, padded. Night medications already given.
--- NOTE | 2019-08-20 21:24 | NUR ---
TRANSFER TO FLOOR: Patient transferred to [facility], Report given to SERENE Borja. Family (mother, Melvina) informed of transfer and present with patient at bedside.
[2019-08-20 21:30] VITALS: BP 133/86
[2019-08-20] MEDS ORDERED: D5NS 1,000 ML IV SCH (21:30)
--- NOTE | 2019-08-20 21:30 | NUR ---
NURSE NOTES: Received patient from Elda CAST via bed. A/O x3. Patient denies pain. On Room air, no respiratory distress noted. IV in the right AC noted with no redness or swelling. 1/2 side rails up and padded for seizure precautions. VS taken. Belongings list verified with other nurse. Non-skid socks in place. Mother at bedside. Bedside commode in place.
--- NOTE | 2019-08-20 21:45 | Electroencephalogram ---
DATE OF PROCEDURE: 08/19/2019 REQUESTING PHYSICIAN: Marvin Copeland M.D. READING PHYSICIAN: Jose Cruz De La Rosa M.D. PROCEDURE PERFORMED: Electroencephalogram. HISTORY: This EEG was performed on a 44-year-old lady with history of hypertension, diabetes mellitus, and questionable seizures. The purpose of this EEG was to evaluate the patient for ongoing ictal or interictal phenomena. TECHNICAL NOTE: This EEG was performed on a [employer] Digital Acquisition Unit with electrodes placed on the scalp according to the International 10-20 system. Wkebx-xq-wubif and rpyjc-zd-hgp montages were used. The EEG was technically satisfactory and was performed in the awake, drowsy, and sleep states. OBSERVATIONS: In the best awake state, the background activity consisted of 10-11 hertz posteriorly predominant, well-developed alpha waveforms, which attenuated on eye-opening. Drowsiness was characterized by dissolution of the alpha rhythm and appearance of slow frequencies in the 5-6 hertz theta range. Stage 2 sleep was characterized by further slowing of the background in the delta and theta range, the presence of vertex waves, and 14-16 hertz sleep spindles. An episode of facial grimacing, grunting, and swinging movements of the limbs was associated with EMG artifact, but no ictal phenomena. In addition, following the events, there was no postictal slowing. IMPRESSION: This is a normal awake, drowsy, and stage 2 sleep EEG. COMMENT: The episode of facial grimacing, grunting, and swinging movements of the arms are indicative of nonepileptic seizure. Clinical correlation is recommended. Jose Cruz De La Rosa M.D. DR: Stephie JOB#: [id number] CC:
[2019-08-20] MEDS ORDERED: LORazepam Inj 2mg/ml 1ml IV PRN (22:00)
--- NOTE | 2019-08-20 22:15 | Initial Psychiatric Evaluation ---
Psychiatry Consultation Psychiatry Consultation Chief Complaint: Seizure History of Present Illness: 44-year-old female with prior history of cerebrovascular disease. She was admitted to the hospital after having a seizure. the pt stated that she was confused and she is unable to answer the question including her name and . the pt insisted that she has seizure do. the pt denied psych hx the pt has been to our er several times and she has not been confused. Allergies: Coded Allergies: No Known Allergies (Unverified , 02/21/18) Medication History Scheduled Amlodipine Besylate (Norvasc), 5 MG ORAL DAILY, (Reported) Aspirin* (Aspir 81*), 81 MG ORAL DAILY Atorvastatin (Lipitor), 80 MG ORAL BEDTIME, (Reported) Glipizide* (Glipizide*), 5 MG ORAL DAILY, (Reported) Hydrochlorothiazide* (Hydrochlorothiazide*), 12.5 MG ORAL BID, (Reported) Propranolol Hcl* (Inderal*), 10 MG ORAL DAILY, (Reported) Scheduled PRN Ibuprofen* (Motrin*), 600 MG ORAL Q8H PRN for For Pain Methocarbamol* (Robaxin-500*), 500 MG ORAL PRN PRN for Agitation, (Reported) Miscellaneous Medications Propranolol HCl (Propranolol HCl), 80 MG PO, (Reported) Discontinued Medications Cephalexin* (Keflex*), 500 MG ORAL EVERY 12 HOURS Discontinued Reason: Pt stopped taking med Glipizide (Glipizide), 10 MG PO, (Reported) Discontinued Reason: Pt stopped taking med Durable Medical Equipment Blood-Glucose Meter ([employer] Blood Glucose Monitor), EACH MC NEEDED, (DME) Patient History History Provided By: Patient, Medical Record, PMD Objective Data Height (Feet): 5 Height (Inches): 7.00 Weight (Pounds): 159 Appearance: no abnormalities noted Behavior Mannerisms: good eye contact Affect: constricted Mood: euthymic Speech: clear Thought Process: no abnormalities Cognition: no abnormalities Assessment/Plan Diagnosis Spangle I: Anxiety do no seizure no psych meds rec to Jas Bonner MD Aug 20, 2019 22:15
[2019-08-21] VITALS: BP 117/72
--- NOTE | 2019-08-21 02:15 | Progress Note ---
DATE: 08/20/2019 INTERNAL MEDICINE PROGRESS NOTE SUBJECTIVE: The patient had an EEG yesterday. The results reveal no atrial activity during an episode of seizure. Neurology consultation was appreciated. Glucose remains low. Blood pressure starting to rise. Oral intake improving. OBJECTIVE: VITAL SIGNS: Blood pressure 127/89, pulse 88, and respirations 18. HEENT: Conjunctivae are pink. Oropharynx clear. NECK: Supple. LUNGS: Clear. CARDIAC: Regular. Normal S1, S2. ABDOMEN: Soft. EXTREMITIES: No edema. NEUROLOGIC: Nonfocal. CTA scan revealed old subcortical infarct. IMPRESSION: 1. Nonepileptic seizures. 2. Type 2 diabetes mellitus. 3. History of cerebrovascular accident. 4. Hypertension. PLAN: 1. Antiplatelet therapy and continue Keppra. 2. Restart YE inhibitor for blood pressure control. 3. Discontinue IV fluids. 4. Hold oral hypoglycemics. 5. Continue glucose monitoring. 6. Check lipid panel. Marvin Copeland M.D. DR: SUSANNE JOB#: [id number] CC:
--- NOTE | 2019-08-21 02:45 | History and Physical Report ---
DATE OF ADMISSION: 08/19/2019 REASON FOR ADMISSION: Seizure. HISTORY OF PRESENT ILLNESS: This 44-year-old female with prior history of cerebrovascular disease. She was admitted to the hospital after having a seizure at her friend's house while lying on the couch. She denies any provoking activity or injection. She was seen in the emergency room and reportedly had seizures and was given lorazepam and then started on Keppra. She subsequently was speaking in shrewd tone, which is associated with her postictal state. The patient states that she has not had any seizure medication for some time and has been waiting for a neurology consultation for a while, which is apparently now scheduled for next week as an outpatient. PAST MEDICAL HISTORY: Hypertension, type 2 diabetes mellitus, uterine tumor with hysterectomy, and history of cerebrovascular accident. FAMILY HISTORY: Not known. SOCIAL HISTORY: She denies smoking, alcohol, or substance abuse. MEDICATIONS: No prior to admission. ALLERGIES: None known. REVIEW OF SYSTEMS: The patient is unable to give any coherent review of systems at this time. PHYSICAL EXAMINATION: VITAL SIGNS: Blood pressure 120/84, pulse 89, and respirations 18. GENERAL: Well developed, well nourished, moderately obese. HEENT: Conjunctivae pink. Pupils are reactive. Oropharynx clear. NECK: Supple. No bruits. LUNGS: Clear. CARDIAC: Regular. Normal S1, S2. No murmur. ABDOMEN: Soft. EXTREMITIES: No edema. NEUROLOGIC: No focal motor or sensory deficit. However, she is not presently able to participate in any prolonged testing of cognitive function. IMPRESSION: 1. Breakthrough seizures. 2. History of hypertension. 3. History of diabetes mellitus. 4. History of cerebrovascular accident. PLAN: 1. Seizure precautions. 2. Continue Keppra. 3. EEG. 4. Neurology consult. 5. Hold antihypertensive and oral hypoglycemic medications based on current clinical parameters, but will resume as needed. Marvin Copeland M.D. : CHRIS JOB#: [id number] CC:
[2019-08-21] MEDS: NovoLOG Insulin Flexpen SUBQ SCH ×4 (06:02→20:56)
[2019-08-21 07:11] LABS: ANION GAP 5 mmol/L (5-15); BLOOD UREA NITROGEN 13 mg/dL (7-18); CALCIUM 8.7 MG/DL (8.5-10.1); CARBON DIOXIDE 27 MMOL/L (21-32); CHLORIDE 107 MMOL/L (98-107); CHOLESTEROL 139 MG/DL (< 200); CREATININE 0.9 MG/DL (0.55-1.30); HDL CHOLESTEROL 40 MG/DL (40-60); POTASSIUM 3.7 MMOL/L (3.5-5.1); SODIUM 139 MMOL/L (136-145); TRIGLYCERIDES 128 MG/DL (30-150)
--- NOTE | 2019-08-21 07:16 | NUR ---
HAND-OFF: Report given to Brayan CAST.
--- NOTE | 2019-08-21 07:34 | NUR ---
NURSE NOTES: Patient asleep, on room air, no sing of distress and shortness of breath; no sing of chest pain; side rails padded for seizure percussion, bed at lowest position, breaks engaged; IV Right-AC 20G flushes well; call light within reach; will keep monitoring.
[2019-08-21 08:00] VITALS: BP 125/78
[2019-08-21] MEDS: Aspirin Baby 81mg ORAL SCH (08:37)
[2019-08-21] MEDS: Heparin 5000 units/ml inj SUBQ SCH ×2 (08:40→20:55)
[2019-08-21] MEDS ORDERED: Lisinopril 10mg tab ORAL SCH ×2 (09:00)
[2019-08-21 12:00] VITALS: BP 131/87
[2019-08-21 16:00] VITALS: BP 102/71
--- NOTE | 2019-08-21 16:02 | NUR ---
CASE MANAGEMENT:REVIEW 08/21/19 SI: SEIZURE. UTI 97.6 80 18 125/78 100% ON RA BG 124 IS: HEPARIN SQ BID KEPPRA PO BID NOVOLOG SQ AC&HS ZESTRIL PO QD ASA PO QD : TRANSFER TO MED SURG PLAN: SEIZURE PRECAUTIONS NEURO CHECKS Q4
--- NOTE | 2019-08-21 19:15 | Progress Note ---
DATE: 08/21/2019 SUBJECTIVE: The patient has been here to the ER multiple times, appeared in the emergency room, has been alert and oriented x4, answering question. She never reported that she had any history of seizure disorder. The patient is answering I do not know to most of the question including her birthday however when asked if she has a history of seizures she stated yes. EEG is not indicative of any epileptic seizure. MENTAL STATUS EXAMINATION: The patient is stating that she is confused. Her mood is neutral. Affect is constricted. Congruent with mood. Thought process is concrete. Thought content, no suicidal or homicidal ideation. Cognition is intact however she is insisting that she is confused and stated that "call my mother, since I am confused." ASSESSMENT: Anxiety disorder. PLAN: 1. the patient when medically cleared. 2. Continue the Ativan. Jas Urbina M.D. DR: Jaden JOB#: [id number] CC:
--- NOTE | 2019-08-21 19:25 | NUR ---
HAND-OFF: Report given to SERENE Holley.
--- NOTE | 2019-08-21 19:36 | NUR ---
NURSE NOTES: Patient is in bed, awake, alert and verbal. Breathing on room air. no sing of distress and shortness of breath noted. no sing of chest pain; side rails padded for seizure percussion, bed in lowest and locked position. IV intact and asymptomatic. call light within reach; will continue to monitoring.
[2019-08-21] MEDS ORDERED: Atorvastatin 20mg tab ORAL SCH (21:00)
[2019-08-22] MEDS ORDERED: KEPPRA500 M4 ORAL (01:10)
--- NOTE | 2019-08-22 01:45 | Progress Note ---
DATE: 08/21/2019 INTERNAL MEDICINE PROGRESS NOTE SUBJECTIVE: The patient has not had any new seizures. Findings of her EEG and neurologic as well as psychiatric evaluations were discussed with the patient and her mother by telephone. The patient has an appointment with another neurologist in three day's time. I informed the mother that I have copied all the reports and consults for her to take to that evaluation. The patient is to continue Keppra until that time. IMPRESSION: 1. Pseudoseizures. 2. History of CVA. 3. Type 2 diabetes mellitus. 4. Hypertension. 5. Obesity. Marvin Copeland M.D. DR: JONATHAN JOB#: [id number] CC:
[2019-08-22 04:00] VITALS: BP 121/76
[2019-08-22] MEDS: NovoLOG Insulin Flexpen SUBQ SCH ×2 (05:58→11:30)
--- NOTE | 2019-08-22 07:20 | NUR ---
HAND-OFF: Report given to SERENE Wong.
--- NOTE | 2019-08-22 07:45 | NUR ---
NURSE NOTES: Received patient on bed, awake. IV site intact and patent. Bed in low and locked position, call lgiht in reach. No signs of respiratory distress or pain. Room board updated, will continue to monitor.
[2019-08-22 08:00] VITALS: BP 100/62
[2019-08-22] MEDS: Aspirin Baby 81mg ORAL SCH (09:42)
[2019-08-22] MEDS: Heparin 5000 units/ml inj SUBQ SCH (09:44)
[2019-08-22 11:48] VITALS: BP 110/73
[2019-08-22 14:20] VITALS: BP 139/80
--- NOTE | 2019-08-22 14:37 | NUR ---
NURSE NOTES: Patient noted to have seizures x2. [employer] called. Ativan given. Dr. Copeland called. Per physician, patient has discharge order and is okay to go because, per physician patient has pseudo-seizures.
[2019-08-22 16:01] VITALS: BP 179/93
--- NOTE | 2019-08-22 16:25 | NUR ---
NURSE NOTES: Patient discharged. IV removed and site covered. ID band disposed of. Personal belongings inventoried and sent with patient. Patient needs met and patient kept comfortable at all times. Patient departed in personal vehicle.
--- NOTE | 2019-08-24 11:19 | Discharge Summary ---
Discharge Summary Discharge Summary _ DATE OF ADMISSION: 08/19/2019 DATE OF DISCHARGE: 08/22/2019 DISCHARGED BY: REASON FOR ADMISSION: 44 years old female with past medical history of hypertension, type 2 diabetes mellitus, uterine tumor , status post hysterectomy, history of CVA, presented to the emergency room after she sustained seizures at her friend's house , while lying on the couch. Patient denied any provoking activity or injection. Patient was seen and evaluated in emergency department . Patient was postictal on arrival. She was oriented to self and somnolent but arousable upon arrival to emergency department Patient had history of seizure , but was not on antiepileptic medication. She had multiple seizure episodes in the past. Blood pressure was slightly elevated 142/101. Laboratory work-up revealed stable hemoglobin and hematocrit , no leukocytosis , stable electrolytes and renal parameters, stable LFT. Serum salicylates ,Tylenol and alcohol levels were all negative. Urine toxicology screen was negative. Urine test was negative. EKG revealed sinus rhythm , no acute ischemic changes. Urinalysis revealed pyuria , few bacteria , +[address] of the head revealed no acute intracranial pathology Patient was loaded with Keppra and subsequently admitted for further management. CONSULTANTS: neurologist Dr. De La Rosa psychiatrist [facility]: Patient admitted . Seizure precaution maintained. Keppra continued. Neurology consult was requested. Initially antihypertensive and oral hypoglycemic were on hold given clinical parameters. EEG revealed normal awake, drowsy and stage II sleep EEG. Per neurologist , the patient's history, neurological examination ,imaging studies and EEG were most consistent with nonepileptic seizures. Neurologist recommended continue Keppra 500 mg every 12 hours. Psychiatrist followed. Per psychiatrist , patient had anxiety disorder . Reality orientation and supportive therapy provided. Psychiatrist cleared patient for discharge. Antiplatelet therapy continued. YE inhibitor restarted for blood pressure control. Lipid panel was stable . TSH within normal limits. Initially started IV fluids stopped. Blood sugar was closely monitored. Hemoglobin A1c 7.2 . Patient condition was thoroughly discussed with her and her mother. Patient had appointment with neurologist in 3 days. Copies of all reports and consults were provided for patient to bring to neurologist for further evaluation. FINAL DIAGNOSES: Nonepileptic seizures Possible pseudoseizures Hypertension Diabetes mellitus History of CVA Anxiety disorder DISCHARGE MEDICATIONS: See Medication Reconciliation list. DISCHARGE INSTRUCTIONS: Patient was discharged home. Follow-up with neurologist as outpatient as scheduled. I have been assigned to dictate discharge summary for this account. I was not involved in the patient's management. Rachel Lopes NP Aug 24, 2019 11:19
--- NOTE | 2019-08-26 12:07 | NUR ---
CASE MANAGEMENT: CM review and clinical information (face sheet/ H&P/ER MD notes/DC summary) faxed to ADELINE/MAKAYLA @ [phone]. T- [phone]
== END 2019-08-22 16:25 | disposition home or self-care (01) | DRG 53 ==
LOC: EDUNIT# 04:11 → EDBD 04:11 → EMR 04:28 → 2E 08:22 → EDBEDREQ 09:47 → 4E 08-20 21:33
DX: G40.89 Other seizures (principal); N39.0 Urinary tract infection, site not specified; I10 Essential (primary) hypertension; E11.9 Type 2 diabetes mellitus without complications; Z86.73 Personal history of transient ischemic attack (TIA), and cerebral infarction without residual deficits; Z79.84 Long term (current) use of oral hypoglycemic drugs; F41.9 Anxiety disorder, unspecified; E66.9 Obesity, unspecified
CPT/HCPCS: 36415; 70450; 70470; 80048; 80053; 80061; 80299; 80307; 81003; 81025; 82550; 82962; 83036; 83735; 84443; 85025; 93005; 95819; 96365; 96375; 96376; 99285; G0480; J1815; J8499